=== PATIENT | female | born 1975 | race Hispanic/Latino ===

== ENCOUNTER 2019-10-14 01:54 | Outpatient (CLI) | payer OTHER, SELFPAY ==
[2019-10-14 23:05] LABS: SARS-CoV-2 RNA PCR Negative
== END 2019-10-14 01:55 | disposition home or self-care (01) ==
LOC: ANHCOVIDDT 01:55
PROVIDERS: PCP Internal Medicine; Visit Provider Internal Medicine Gastroenterology
DX: Z01.812 Encounter for preprocedural laboratory examination (principal); Z11.59 Encounter for screening for other viral diseases
CPT/HCPCS: 87635; C9803; U0003

== ENCOUNTER 2019-10-17 01:08 | Day surgery (SDC) | payer OTHER, SELFPAY ==
[2019-10-16 14:19] VITALS: BMI 24.2
[2019-10-17 10:47] VITALS: BP 99/72; PULSE 81; RESP 16; TEMP 37; O2SAT 100
--- NOTE | 2019-10-17 10:51 | WPDANESEPPF ---
Anes - Initial Pre Proc Eval Procedure: Operation Date: 10/17/19 12:00 Proposed Procedures p Esophagogastroduodenoscopy - Mane Puri MD Date/Time: 10/17/19 10:51 Surgeon: Mane Puri MD Pre Op Diagnosis: Reflux Patient Data Age: 44 Gender: F Height: 1.57 m Weight: 60.1 kg Last Vital Signs Temp 37.0 C 10/17/19 10:47 Pulse 81 10/17/19 10:47 Resp 16 10/17/19 10:47 BP 99/72 L 10/17/19 10:47 Pulse Ox 100 10/17/19 10:47 Allergies Allergy/AdvReac Type Severity Reaction Status Date / Time No Known Allergies Allergy Verified 10/16/19 14:14 Home Medications Medication Instructions Recorded Confirmed Type No Home Medications 10/16/19 10/16/19 History Patient hx anesthesia problems: none Family hx anesthesia problems: none PMFSH Past Medical History Medical History (Updated 10/12/19 @ 14:09 by Mane Puri MD) Depression Epigastric pain History of Helicobacter infection Surgical History Surgical History delivery delivered Social History Social History Smoking status: Never smoker Alcohol intake: never Sexual Orientation (if Verbalized by the Patient): Straight or Heterosexual Anes - Eval Final PreProcedure Day of Procedure 10/17/19 10:51 Patient weight: normal Heart: regular rate and rhythm Lungs: clear to auscultation and normal air movement Airway: Mallampati scale class II Neurological: alert and oriented Last oral intake: >/= 8 hours ASA classification: II Emergent: no Anesthetic plan: proceed Anesthesia type and monitoring: general GIVS and standard monitoring Informed Consent: The patient's anesthetic plan and its attendant risks and benefits were discussed with the patient/family/POA. Questions were solicited and answers provided to the satisfaction of the patient/family/POA.
[2019-10-17] MEDS: LACTATED RINGERS 1,000 ML 150 ML IV CONT (11:15)
--- NOTE | 2019-10-17 11:44 | WPDHPUPDATE1 ---
History and Physical Update Update Date/Time: 10/17/19 11:44 History and Physical has been reviewed, including an updated exam of the patient. There are NO changes in the patient's condition. Risks, benefits, and alternatives have been discussed and questions answered. Patient agrees to proceed with procedure.
[2019-10-17 11:54] VITALS: BP 78/51; PULSE 85; RESP 17; O2SAT 100
[2019-10-17 12:04] VITALS: BP 95/66; PULSE 63; RESP 15; O2SAT 100
[2019-10-17 12:14] VITALS: BP 98/66; PULSE 63; RESP 15; O2SAT 100
== END 2019-10-17 12:50 | disposition home or self-care (01) ==
PROVIDERS: PCP Internal Medicine; Visit Provider Internal Medicine Gastroenterology
PROC: 0DJ08ZZ Inspection of Upper Intestinal Tract, Via Natural or Artificial Opening Endoscopic (ICD-10-PCS; CPT 43235; principal; 2019-10-17 12:00)
DX: K29.50 Unspecified chronic gastritis without bleeding (principal); B96.81 Helicobacter pylori [H. pylori] as the cause of diseases classified elsewhere
CPT/HCPCS: 43239; 87081; 88305; 88342; J2704; J7120